=== PATIENT | male | born 1955 | race Caucasian/White ===

== ENCOUNTER 2025-02-14 10:12 | Emergency (ER) | payer MEDICARE, SELFPAY ==
[2025-02-14 10:26] VITALS: BP 196/99
[2025-02-14 11:18] VITALS: BMI 26.8
[2025-02-14 11:35] LABS: Hematocrit 46.8 % (39.0-52.0); Hemoglobin 15.9 g/dL (13.0-18.0); Mean Corp Hgb Conc. 34.0 g/dL (33.0-37.0); Mean Corpuscular Volume 84.9 fL (80.0-94.0); Nucleated Red Blood Cells % 0 % (-); Platelet Count 272 10^3/uL (130-400); Red Cell Dist. Width 12.8 % (11.5-14.5)
--- NOTE | 2025-02-14 11:49 | ED.GENMED ---
History of Present Illness
General
Chief Complaint: Abdominal Pain
Time Seen by Provider: 02/14/25 11:00
History of Present Illness
History of Present Illness:
69-year-old male with history of high blood pressure presenting for 2 days of left lower quadrant abdominal pain. Notes generalized soreness to the lower abdomen. Denies any abdominal surgeries in the past or any history of diverticulitis or
kidney stones. Denies fever. Denies any vomiting or diarrhea. Denies chest pain or difficulty breathing. He went to urgent care prior to arrival, had an x-ray of his hip completed, and was advised to come to the hospital for further assessment.
Denies additional acute medical complaints
Past History
Past History
ED Past Medical History: None
ED Past Surgical History: None
Social History
Tobacco: Non-smoker
Personal:
Living: with family
Phy Exam
Physical Exam
Physical Exam:
General: Well-appearing, no clinical signs of dehydration, nontoxic and in no acute distress
HEENT: protecting airway
Neck: appears supple
CV: Normal heart rate
Resp: No accessory muscle use, no increased work of breathing
Abd: Soft and non-distended, mild tenderness to left lower quadrant, notes that he did get 60 mg of Toradol prior to arrival. Which has significantly improved his pain.
Extremities: No deformities, no swelling
Neuro: alert, no focal neurologic deficit
: deferred
Rectal: deferred
Psych: Normal affect
Skin: Intact
Course
Orders/Labs/Results
Orders:
Orders
02/14/25 11:19
CT Abd/pelvis W Iv Cont Urgent
Comment:
Reason For Exam: LLQ pain
02/14/25 11:21
Complete Blood Count/With Diff Urgent
02/14/25 11:46
Comprehensive Metabolic Panel Urgent
02/14/25 14:19
Urinalysis Reflex To Culture Urgent
Date Specimen was Collected: 02/14/25
Time Specimen was Collected: 14:20
Abnormal Lab Results
02/14/25 02/14/25
11:21 11:46
MPV 10.6 H fL
(7.4-10.4)
Absolute Neuts (auto) 8.1 H 10^3/uL
(1.4-6.5)
Lymphocytes % 18.7 L %
(20.5-51.1)
Glucose 109 H mg/dl
(70-99)
02/14/25 11:21
02/14/25 11:46
Vital Signs
Initial and Last Documented VS:
Initial Vital Signs
Temp Pulse Resp BP Pulse Ox
98.5 F 76 16 196/99 97
02/14/25 10:26 02/14/25 10:26 02/14/25 10:26 02/14/25 10:26 02/14/25 10:26
Last Documented Vital Signs
Temp Pulse Resp BP Pulse Ox
98.5 F 70 18 196/99 97
02/14/25 10:26 02/14/25 11:49 02/14/25 11:49 02/14/25 10:26 02/14/25 11:51
MDM/Problems Addressed
MDM/Problems Addressed:
69-year-old male presenting for left lower quadrant abdominal pain. Vital signs are significant for high blood pressure.
On exam patient resting comfortably, no acute distress. Mild reproducible tenderness to left lower quadrant, however patient notes that it was much worse prior to arrival, received Toradol. Differential considerations include diverticulitis versus
nephrolithiasis versus colitis, however denies any additional associated GI symptoms. Plan for laboratory analysis and CT abdominal imaging.
14:30 - Patient's labs are unremarkable. CT without any significant acute pathology. There is mention of distended bladder with some mild left hydronephrosis, however no signs of stone. Suspect bladder outlet obstruction. Patient reports known
history of BPH. Denies any dysuria. Urinalysis obtained from urgent care, reviewed, no abnormality. Reports that he just urinated twice without any present concern for retention. Patient notes that the symptoms did start after he was shoveling
snow, so possible musculoskeletal component. At this time pain remains controlled. Feel stable for discharge with continued outpatient supportive therapy. Has an upcoming appoint with urology. Return precautions discussed and patient verbalized
understanding
*Pulse Oximetry
SaO2: 97
Oxygen Mode of Delivery: Room air
Patient hypoxic: no
*Critical Care Note
Total Time (30-74mins, 75-104mins- exclusive of procedures): Not Applicable
ED Attending Note
-
Portions of this chart may have been created with voice recognition software.� Occasional wrong word or��sound alike� substitutions may have occurred due to the inherent limitations of voice recognition software.
Discharge Plan
Departure
Prescriptions:
No Action
gentamicin 1 DROP drops
2 drp LEFT EYE Q4 Qty: 1 0RF
Referrals:
Aracelis Samuels NP [Family Provider, Family Practice]
Interventions
Interventions:
*General Assessment Last Done: 02/14/25 10:26
*Neglect/Abuse Screening Last Done: 02/14/25 10:26
*ED COVID-19 Vaccine History Last Done: 02/14/25 11:19
*ED Influenza Vaccine History Last Done: 02/14/25 11:19
[facility] Fall Risk Assessment Tool Last Done: 02/14/25 11:29
*Risk Screen - Suicide (C-SSRS) Last Done: 02/14/25 10:26
IH-Xxddhr-Nbpqpwqfvr Assessment Last Done: 02/14/25 11:20
Discharge Date and Time
Print Language: ARABIC
[2025-02-14 12:30] LABS: ALT (SGPT) 23 U/L (0-50); AST (SGOT) 29 U/L (17-59); Albumin 4.4 g/dl (3.5-5.0); Alkaline Phosphatase 70 U/L (38-126); Blood Urea Nitrogen 17 mg/dl (9-20); Calcium 9.3 mg/dl (8.4-10.2); Carbon Dioxide 28 mmol/L (22-30); Chloride 102 mmol/L (98-107); Estimated Creatinine Clearance 66 ml/min; Glucose 109 mg/dl (70-99); Potassium 4.1 mmol/L (3.5-5.1); Sodium 137 mmol/L (135-145); Total Protein 7.8 g/dl (6.3-8.2); eGFR > 60.00
[2025-02-14 14:35] VITALS: BP 181/93
== END 2025-02-14 14:45 | disposition home or self-care (01) ==
LOC: EMR 10:12
PROVIDERS: EMERGENCY PHYSICIAN Student in an Organized Health Care Education/Training Program; FAMILY PHYSICIAN Nurse Practitioner Family
DX: R10.32 Left lower quadrant pain (principal); N40.0 Benign prostatic hyperplasia without lower urinary tract symptoms; I10 Essential (primary) hypertension
CPT/HCPCS: 99284; 74177; 80053; 85025; Q9967